=== PATIENT | male | born 1995 | race American Indian/Alaskan Native ===

== ENCOUNTER 2017-08-23 22:01 | Emergency (ER) | payer BC, OTHER ==
[2017-08-23] MEDS ORDERED: ASPIRIN PO ONE (22:15)
[2017-08-23 23:16] LABS: Basophils % (Auto) 0.6 % (0.0-1.8); Eosinophils # (Auto) 0.2 K/mm3 (0.0-0.4); Eosinophils % (Auto) 3.7 % (0.0-4.3); Hematocrit 41.2 % (35.5-45.6); Hemoglobin 13.8 gm/dl (11.8-15.2); Lymphocytes # (Auto) 2.3 K/mm3 (1.2-5.4); Lymphocytes % (Auto) 34.8 % (13.4-35.0); Mean Corpuscular HGB Conc 34 % (32-34); Mean Corpuscular Hemoglobin 26 pg (28-32); Mean Corpuscular Volume 78 fl (84-94); Monocytes # (Auto) 0.7 K/mm3 (0.0-0.8); Monocytes % (Auto) 10.1 % (0.0-7.3); Platelet Count 241 K/mm3 (140-440); Red Blood Count 5.26 M/mm3 (3.65-5.03); Red Cell Distribution Width 13.4 % (13.2-15.2)
[2017-08-23 23:50] LABS: BUN/Creatinine Ratio 12; Blood Urea Nitrogen 12 mg/dL (9-20); Calcium 9.1 mg/dL (8.4-10.2); Hemolysis Index 2
[2017-08-24 04:39] VITALS: BP 138/76
--- NOTE | 2017-08-24 10:33 | Emergency Department Report ---
HPI - General Chief Complaint: Arrhythmia/Palpitations Time Seen by Provider: 08/24/17 10:12 - HPI HPI: This is a 21-year-old [place] male presents to the emergency department with complaint of 3 different episodes of palpitations that has occurred since last night. He denies any chest pain, shortness of breath, fever, nausea, vomiting or diaphoresis. He denies any past medical history. He denies any tobacco or illicit drug use. He denies any excessive caffeine use. He has not taken anything for symptoms of her presentation. No obvious aggravating or alleviating factors. He does not have a primary care physician. No recent travel or sick contacts at home. ED Past Medical Hx - Surgical History Additional Surgical History: acl repair - Social History Smoking Status: Former Smoker Substance Use Type: None - Medications Home Medications: Home Medications Medication Instructions Recorded Confirmed Last Taken Type No Known Home Medications [No 01/15/16 01/15/16 Unknown History Reported Home Medications] ED Review of Systems ROS: Stated complaint: HEART BEAT FAST,SOB Other details as noted in HPI Comment: All other systems reviewed and negative Constitutional: denies: chills, fever Eyes: denies: eye pain, eye discharge, vision change ENT: denies: ear pain, throat pain Respiratory: denies: cough, shortness of breath, wheezing Cardiovascular: palpitations. denies: chest pain Gastrointestinal: denies: abdominal pain, nausea, diarrhea Genitourinary: denies: urgency, dysuria Musculoskeletal: denies: back pain, joint swelling, arthralgia Skin: denies: rash, lesions Neurological: denies: headache, weakness, paresthesias Physical Exam - Physical Exam Vital Signs: Vital Signs 08/23/17 08/24/17 08/24/17 22:10 04:37 10:13 Temperature 97.9 F 98.0 F Pulse Rate 86 60 Respiratory 18 18 Rate Blood Pressure 135/79 138/76 O2 Sat by Pulse 100 Oximetry Physical Exam: GENERAL: The patient is well-developed well-nourished. HENT: Normocephalic. Atraumatic. Patient has moist mucous membranes. EYES: Extraocular motions are intact. Pupils equal reactive to light bilaterally. NECK: Supple. Trachea is midline. CHEST/LUNGS: Clear to auscultation. There is no respiratory distress noted. HEART/CARDIOVASCULAR: Regular. There is no tachycardia. There is no murmur. ABDOMEN: Abdomen is soft, nontender. Patient has normal bowel sounds. There is no abdominal distention. SKIN: Skin is warm and dry. NEURO: The patient is awake, alert, and oriented. The patient is cooperative. The patient has no focal neurologic deficits. The patient has normal speech. MUSCULOSKELETAL: There is no tenderness or deformity. There is no limitation range of motion. There is no evidence of acute injury. ED Course Vital Signs 08/23/17 08/24/17 08/24/17 22:10 04:37 10:13 Temperature 97.9 F 98.0 F Pulse Rate 86 60 Respiratory 18 18 Rate Blood Pressure 135/79 138/76 O2 Sat by Pulse 100 Oximetry ED Medical Decision Making - Lab Data Result diagrams: 08/23/17 22:50 08/23/17 22:50 - EKG Data -: EKG Interpreted by Me EKG shows normal: sinus rhythm, axis, intervals, QRS complexes, ST-T waves ( appears consistent with early repolarization) Rate: normal - EKG Data When compared to previous EKG there are: previous EKG unavailable Interpretation: normal EKG (with early repolarization) - Radiology Data Radiology results: image reviewed interpreted by me: Chest x-ray does not show any acute process. There are no pleural effusions, obvious pneumonia and there is no pneumothorax. - Medical Decision Making Patient presents with some intermittent palpitations that have since resolved. No chest pain or signs of shortness of breath. EKG does not show any ST elevation [place] or significant dysrhythmia. Labs and an unremarkable including negative troponins 3 and a normal thyroid function. Vital signs stable throughout his ED course including being afebrile. He appears safe for discharge home and has been given a referral for primary care and cardiology. We discussed the possible need for a Holter monitor if symptoms return. He is encouraged to return to the emergency Department with any worsening of symptoms or any acute distress. Critical Care Time: No Critical care attestation.: If time is entered above; I have spent that time in minutes in the direct care of this critically ill patient, excluding procedure time. ED Disposition Clinical Impression: Palpitations Disposition: DC-01 TO HOME OR SELFCARE Is pt being admited?: No Condition: Stable Instructions: Palpitations (ED) Additional Instructions: Please follow up with a primary care physician in the next few days. I have given you a referral for a local feller seam operator, Dr. Aranda, to follow up regarding your palpitations. Return to the emergency Department with any worsening of your symptoms are any acute distress. Referrals: PRIMARY CARE, [Primary Care Provider] - 3-5 Days ELLIOT ARANDA MD [Staff Physician] - 3-5 Days EMI EDWARDS MD [Staff Physician] - 3-5 Days [facility] [Outside] - 3-5 Days Time of Disposition: 11:52
--- NOTE | 2017-08-24 11:47 | XRay Report ---
ROUTINE CHEST, TWO VIEWS: HISTORY: chest pain. The trachea, heart, mediastinal contour, lung walker and bony thorax are unremarkable. IMPRESSION: Unremarkable chest x-ray.
== END 2017-08-24 12:00 | disposition home or self-care (01) ==
LOC: ED 22:01
DX: R00.2 Palpitations (principal); Z87.891 Personal history of nicotine dependence
CPT/HCPCS: 36415; 71046; 80048; 84443; 84484; 85025; 93005; 93010; 99284